=== PATIENT | male | born 1995 | race Caucasian/White ===

== ENCOUNTER 2017-02-10 14:20 | Inpatient (IN) | payer MEDICAID ==
[~2017-02-10] VITALS: Ht 172.7 cm; Wt 126.7 kg
[2017-02-10 14:32] VITALS: Ht 172.7 cm; Wt 126.7 kg
[2017-02-10 16:03] LABS: ADD UMIC YES; UR ASCORBIC ACID NEGATIVE (NEGATIVE); UR BILIRUBIN (Dip) NEGATIVE (NEGATIVE); UR BLOOD (Dip) 1+ mg/dL (NEGATIVE); UR CLARITY CLEAR (CLEAR); UR COLOR YELLOW (YELLOW); UR GLUCOSE (Dip) NEGATIVE (NEGATIVE); UR KETONES (Dip) NEGATIVE (NEGATIVE); UR LEUKOCYTE ESTERASE (Dip) NEGATIVE Leu/ul (NEGATIVE); UR MUCUS FEW /HPF (NONE SEEN); UR NITRITE (Dip) NEGATIVE (NEGATIVE); UR RBC 7 /HPF (0-5); UR SPECIFIC GRAVITY (Dip) 1.032 (1.003-1.030); UR TOTAL PROTEIN (Dip) NEGATIVE (NEGATIVE); UR UROBILINOGEN (Dip) 2+ mg/dL (NEGATIVE)
[2017-02-10 16:09] LABS: BASOPHIL # 0.1 10^3/ul (0.0-0.1); BASOPHILS % 0.5 % (0.0-2.0); EOSINOPHILS # 0.1 10^3/ul (0.0-0.5); EOSINOPHILS % 0.8 % (0.0-7.0); HEMATOCRIT 44.9 % (42.0-52.0); HEMOGLOBIN 15.4 g/dl (14.0-18.0); LYMPHOCYTES # 1.5 10^3/ul (0.8-2.9); LYMPHOCYTES % 14.7 % (15.0-51.0); MEAN CORPUSCULAR HEMOGLOBIN 29.1 pg (29.0-33.0); MEAN CORPUSCULAR HGB CONC 34.3 g/dl (32.0-37.0); MEAN CORPUSCULAR VOLUME 84.9 fl (82.0-101.0); MEAN PLATELET VOLUME 10.6 fl (7.4-10.4); MONOCYTE # 1.2 10^3/ul (0.3-0.9); MONOCYTES % 11.5 % (0.0-11.0); NEUTROPHIL # 7.5 10^3/ul (1.6-7.5); PLATELET COUNT 293 10^3/UL (140-415); RED BLOOD COUNT 5.29 10^6/ul (4.70-6.10); RED CELL DISTRIBUTION WIDTH 12.4 % (11.5-14.5); WHITE BLOOD COUNT 10.4 10^3/ul (4.8-10.8)
[2017-02-10 16:30] LABS: ALBUMIN 4.7 g/dl (3.3-4.9); ALBUMIN/GLOBULIN RATIO 1.27; BILIRUBIN,INDIRECT 0.4 mg/dl (0-1.1); BILIRUBIN,TOTAL 0.4 mg/dl (0.2-1.3); CALCIUM 9.2 mg/dl (8.4-10.2); CREATININE 0.79 mg/dl (0.61-1.24); POTASSIUM 4.2 mmol/L (3.5-5.1); TOTAL PROTEIN 8.4 g/dl (6.1-8.1)
--- NOTE | 2017-02-10 16:48 | RADRPT ---
PROCEDURE: CT abdomen and pelvis without contrast. Site of service: emergency room. CLINICAL INDICATION: Periumbilical abdominal pain TECHNIQUE: CT scan of the abdomen and pelvis without contrast was performed on the CT scanner. Th e patient was scanned without intravenous contrast. Oral contrast was not administered. 3-D post p rocessing coronal and sagittal re-formations were obtained from the axial source images. DICOM imag es are available. Exam D L P [address] D V O L 23 mgy. This exam is limited due to lack of intravenous contrast. One or more of the following dose reduction techniques were used: Automated exposure control Adjustment of the mA and/or kV according to patient size. Use of iterative reconstruction technique. COMPARISON: None FINDINGS: CT abdomen: The lung bases are clear. The heart size is normal, without pericardial thickening or effusion. The liver is normal in size and density without focal mass or intrahepatic biliary dilatation. The spleen is normal in size and homogeneous in density. The stomach is partially collapsed, but is ricardo ssly unremarkable. The pancreas as visualized is normal. The gallbladder and biliary tree are unre markable and there is no evidence for biliary dilatation. The adrenal glands are symmetric and normal. There is a nonobstructing, punctate, 3 mm right renal stone. No collecting system dilatation, obstructing stone, or solid mass. The kidneys are otherwise normal. The aorta is of normal caliber. There is no retroperitoneal lymphadenopathy. The sandro hepatis alisa on is clear. The bowel and mesentery, as visualized, are equally unremarkable. 3.7 cm superior to the umbilicus; there is a 5 cm AP x 4 x 4 cm ventral hernia with a neck measuring 10 x 10 mm containing fat and fluid only that shows hernia incarceration. This incarcerated hernia does not show evidence for bowel loops. There are no findings of bowel obstruction, perforation, dario e fluid or abscess. CT pelvis: The small bowel loops situated within the pelvis are unremarkable. The appendix is normal. The sig moid colon and rectum are all unremarkable. No mass, lymphadenopathy, or free fluid is seen. No ac akhiok inflammation is seen. Mild constipation is noted. The pelvic organs are normal. The pelvic sidewalls and inguinal regions are clear. The surrounding osseous structures are normal. No osteolytic or osteoblastic lesion is detected. IMPRESSION: 1. 5 x 4 x 4 cm ventral hernia with a neck measuring 10 mm, 3.7 cm superior to the mellitus; this ve ntral hernia contains fat and fluid only, and shows incarceration. There are no findings of bowel ob struction, bowel loops within the incarcerated hernia, bowel perforation, intra-abdominal abscess, o r acute inflammation of the bowel loops. Surgical follow-up is needed. 2. Nonobstructing, 3 mm, punctate renal stone. RPTAT: QQ .Buffy Reno MD, MD Date Time Electronically viewed and signed by .Buffy Reno MD, MD on 02/10/2017 16:48 .F/
[2017-02-10] MEDS ORDERED: HYDROmorphONE 1 MG/ML SYG IV STA ×2 (16:55→18:34)
[2017-02-10] MEDS ORDERED: SOD CHLORIDE 0.9% 1,000 ML IV STA (16:57)
[2017-02-10] MEDS ORDERED: ACETAMINOPHEN 325 MG TAB PO PRN (18:00)
[2017-02-10] MEDS ORDERED: ONDANSETRON 4 MG INJ IV PRN ×2 (18:00→19:00)
--- NOTE | 2017-02-10 18:03 | EN ---
Date/Time of Note Date/Time of Note DATE: 02/10/17 TIME: 18:01 ER Progress Note I have seen and evaluated the patient along with the PA and/or [employer] provider. I agree with the evaluation and plan of care. Please see their documentation for full ER course and evaluation. In short: This is a 21-year-old male who presents with epigastric mass that is consistent with ventral hernia On exam: Firm hernia on the ventral abdomen that is fixed without ability to reduce despite multiple attempts, some early skin changes are noted, no peritonitis Assessment and plan: the patient has evidence of incarcerated hernia, no signs clinically of strangulation. However, failed attempts at Reduction at the bedside. The patient will require surgical evaluation and possible surgical intervention. I spoke to Dr. Reeves who is on the case. The patient is n.p.o. His pain is well controlled. Accepting care team and consultations: I discussed the current laboratory data, diagnostic imaging and emergency care provided. Admitting team: Dr. Mclaughlin Admitting team indication: Insurance directed Consulting services: Dr. Adiel Reeves, general surgeon JANE CORNELIUS MD Feb 10, 2017 18:03
--- NOTE | 2017-02-10 18:13 | ERD ---
ER Documentation Chief Complaint Chief Complaint ABDOMINAL PAIN X 4 DAYS; DENIES N/V HPI 21-year-old male complaining of epigastric pain 4 days. Patient denies vomiting. Patient states the pain is worse with moving. Patient states he has not had a bowel movement for the last 4 days. Took a laxative earlier today and yesterday with no alleviation of constipation. Feels his abdomen is distended. Has never experienced this before. Denies taking any other medication. Has not been passing gas over the last few days. Denies medical problems. NKDA. Surgical history: Finger surgery. Social history: Denies ROS All systems reviewed and are negative except as per history of present illness. PMhx/Soc Medical and Surgical Hx: pt denies Medical Hx, pt denies Surgical Hx Hx Alcohol Use: Yes Hx Substance Use: No Hx Tobacco Use: No Smoking Status: Never smoker Physical Exam Vitals Vital Signs Date Time Temp Pulse Resp B/P Pulse Ox O2 Delivery O2 Flow Rate FiO2 02/10/17 14:32 99.7 110 16 140/86 97 Physical Exam GENERAL: The patient is well-appearing, well-nourished, in no acute distress HEENT: Atraumatic. Conjunctivae are pink. Pupils equal, round, and reactive to light. There is no scleral icterus. Tympanic membranes clear bilaterally. Oropharynx clear. No nystagmus or photophobia. NECK: C-spine is soft and supple. There is no meningismus. There is no cervical lymphadenopathy. No JVD. No bruits. No goiter. CHEST: Clear to auscultation bilaterally. There are no rales, wheezes or rhonchi. HEART: Regular rate and rhythm. No murmurs, clicks, rubs or gallops. No S3 or S4. ABDOMEN: Tennis ball size mass noted to mid abdomen. No distention. No organomegaly. Mild tenderness to palpation over the mid abdominal mass. Abdomen soft. SKIN: Erythema noted to the abdominal wall. No vesicles. No rash. BACK: No CVA tenderness Result Diagram: 02/10/17 1555 02/10/17 1555 Results 24 hrs Laboratory Tests Test 02/10/17 15:47 02/10/17 15:55 Urine Color YELLOW Urine Clarity CLEAR Urine pH 5.0 Urine Specific Olpe 1.032 Urine Ketones NEGATIVEmg/dL Urine Nitrite NEGATIVEmg/dL Urine Bilirubin NEGATIVEmg/dL Urine Urobilinogen 2+mg/dL Urine Leukocyte Esterase NEGATIVELeu/ul Urine Microscopic RBC 7/HPF Urine Microscopic WBC 1/HPF Urine Mucus FEW/HPF Urine Hemoglobin 1+mg/dL Urine Glucose NEGATIVEmg/dL Urine Total Protein NEGATIVEmg/dl White Blood Count 10.410^3/ul Red Blood Count 5.2910^6/ul Hemoglobin 15.4g/dl Hematocrit 44.9% Mean Corpuscular Volume 84.9fl Mean Corpuscular Hemoglobin 29.1pg Mean Corpuscular Hemoglobin Concent 34.3g/dl Red Cell Distribution Width 12.4% Platelet Count 29222^3/UL Mean Platelet Volume 10.6fl Neutrophils % 72.0% Lymphocytes % 14.7% Monocytes % 11.5% Eosinophils % 0.8% Basophils % 0.5% Nucleated Red Blood Cells % 0.0/100WBC Neutrophils # 7.510^3/ul Lymphocytes # 1.510^3/ul Monocytes # 1.210^3/ul Eosinophils # 0.110^3/ul Basophils # 0.110^3/ul Nucleated Red Blood Cells # 0.010^3/ul Sodium Level 142mmol/L Potassium Level 4.2mmol/L Chloride Level 101mmol/L Carbon Dioxide Level 26mmol/L Anion Gap 19 Blood Urea Nitrogen 16mg/dl Creatinine 0.79mg/dl Glucose Level 96mg/dl Calcium Level 9.2mg/dl Total Bilirubin 0.4mg/dl Direct Bilirubin 0.00mg/dl Indirect Bilirubin 0.4mg/dl Aspartate Amino Transf (AST/SGOT) 19IU/L Alanine Aminotransferase (ALT/SGPT) 47IU/L Alkaline Phosphatase 96IU/L Total Protein 8.4g/dl Albumin 4.7g/dl Globulin 3.70g/dl Albumin/Globulin Ratio 1.27 Lipase 42U/L Current Medications Medications (Trade) Dose Ordered Sig/Brielle Route PRN Reason Start Time Stop Time Status Last Admin Dose Admin Hydromorphone HCl 1 mg 1 mg ONCE STAT IV 02/10/17 16:55 02/10/17 16:56 DC 02/10/17 17:03 Sodium Chloride (NS) 1,000 ml @ 1,000 mls/hr Q1H STAT IV 02/10/17 16:57 02/10/17 17:56 DC 02/10/17 17:04 Ondansetron HCl (Zofran Inj) 4 mg BRIDGE ORDER PRN IV NAUSEA AND/OR VOMITING 02/10/17 18:00 02/11/17 17:59 Acetaminophen (Tylenol Tab) 650 mg ER BRIDGE PRN PO MILD PAIN/FEVER 02/10/17 18:00 02/11/17 17:59 Procedures/MDM DIAGNOSTIC IMAGING REPORT Patient: BRITTANY BEJARANO : 1995 Age: 21 Sex: M MR #: [id number] DOS: 02/10/17 1536 Ordering MD: OZ NEWBERRY PA-C Location: [facility] Room/Bed: PROCEDURE: CT abdomen and pelvis without contrast. Site of service: emergency room. CLINICAL INDICATION: Periumbilical abdominal pain TECHNIQUE: CT scan of the abdomen and pelvis without contrast was performed on the CT scanner. The patient was scanned without intravenous contrast. Oral contrast was not administered. 3-D post processing coronal and sagittal re- formations were obtained from the axial source images. DICOM images are available. Exam D L P [address] D V O L 23 mgy. This exam is limited due to lack of intravenous contrast. One or more of the following dose reduction techniques were used: Automated exposure control Adjustment of the mA and/or kV according to patient size. Use of iterative reconstruction technique. COMPARISON: None FINDINGS: CT abdomen: The lung bases are clear. The heart size is normal, without pericardial thickening or effusion. The liver is normal in size and density without focal mass or intrahepatic biliary dilatation. The spleen is normal in size and homogeneous in density. The stomach is partially collapsed, but is grossly unremarkable. The pancreas as visualized is normal. The gallbladder and biliary tree are unremarkable and there is no evidence for biliary dilatation. The adrenal glands are symmetric and normal. There is a nonobstructing, punctate, 3 mm right renal stone. No collecting system dilatation, obstructing stone, or solid mass. The kidneys are otherwise normal. The aorta is of normal caliber. There is no retroperitoneal lymphadenopathy. The sandro hepatis region is clear. The bowel and mesentery, as visualized, are equally unremarkable. 3.7 cm superior to the umbilicus; there is a 5 cm AP x 4 x 4 cm ventral hernia with a neck measuring 10 x 10 mm containing fat and fluid only that shows hernia incarceration. This incarcerated hernia does not show evidence for bowel loops. There are no findings of bowel obstruction, perforation, free fluid or abscess. CT pelvis: The small bowel loops situated within the pelvis are unremarkable. The appendix is normal. The sigmoid colon and rectum are all unremarkable. No mass , lymphadenopathy, or free fluid is seen. No acute inflammation is seen. Mild constipation is noted. The pelvic organs are normal. The pelvic sidewalls and inguinal regions are clear. The surrounding osseous structures are normal. No osteolytic or osteoblastic lesion is detected. IMPRESSION: 1. 5 x 4 x 4 cm ventral hernia with a neck measuring 10 mm, 3.7 cm superior to the mellitus; this ventral hernia contains fat and fluid only, and shows incarceration. There are no findings of bowel obstruction, bowel loops within the incarcerated hernia, bowel perforation, intra-abdominal abscess, or acute inflammation of the bowel loops. Surgical follow-up is needed. 2. Nonobstructing, 3 mm, punctate renal stone. ER Course: Patient placed in Trendelenburg and a liter of normal saline with 1 mg Dilaudid. Ice applied to abdominal mass. Firm pressure was applied to the abdominal mass to attempt reduction of incarcerated hernia. Reduction was unsuccessful. Dr. Novak attempted to reduce hernia as well and was unsuccessful. Case was taken over by Dr. Novak, he will contact surgeon for consultation and admission. MDM: 21-year-old male complaining of abdominal pain with no passing of stools or bowel movements. Patient has findings of incarcerated hernia on CT scan with unsuccessful reduction in the emergency room. Patient will be admitted to the hospital for higher level care and surgeon consultation. Patient was stable and aware of reason for admission. Patient's pain was well controlled at the time of admission. All questions answered at time of admission YOLANDA NEWBERRY PA-C Feb 10, 2017 18:13
[2017-02-10] MEDS ORDERED: NACL 0.9% 3 ML SYG IV SCH (19:00)
--- NOTE | 2017-02-10 19:02 | HP ---
Date/Time of Note Date/Time of Note DATE: 02/10/17 TIME: 18:58 Assessment/Plan VTE Prophylaxis VTE Prophylaxis Intervention: SCD's Assessment/Plan Chief Complaint/Hosp Course 1. Ventral hernia with evidence of incarceration. No evidence of any strangulation. The patient to be seen by general surgery. The patient will be kept n.p.o. The patient will be provided with adequate pain control. The patient will be provided with IV fluids. The patient has no evidence of any underlying peritonitis. The CT does not show any evidence of bowel perforation , intra-abdominal abscess or acute inflammation of the bowel loops. Will trend lactic acid levels. 2. Morbid obesity. BMI of 42.5 kg/m. A hemoglobin A1c and fasting lipid panel will be obtained. Plan: The patient will be admitted to inpatient medical surgical floor. The patient will be kept n.p.o. The patient will be started on DVT prophylaxis. The patient will remain a full code. Activities will be bedrest . The rest of the patient's management will be based on the clinical course, inputs from consultants, and the results of diagnostic studies. Based on the patient's clinical presentation, he most probably requires at least 2 midnights' stay for further management and evaluation of his clinical presentation. The case and management of this patient was fully discussed with Dr. Mclaughlin. Problems: HPI/ROS Admit Date/Time Admit Date/Time Hx of Present Illness Reason for admission: Abdominal pain. Constipation. Consultants 1. Jose Reeves MD, General Surgery. This is an obese 21-year-old male who denies any significant past medical history who came to the emergency room with chief complaint of constipation and abdominal pain that has been going on for the past 4 days. The patient verbalized that he had some food on 02/07/2017. Since then he was having abdominal pain. Later he was constipated. The patient took [id number] laxatives within no relief of constipation. The patient denied any nausea or vomiting. He has not been passing gas over the past few days. The patient verbalized that he has been noticing a bulge in his upper abdomen that was painful to touch. The patient denied any prior similar episodes. The patient denied any surgical history in the past. In the emergency room, the patient underwent a CT scan of the abdomen and pelvis that showed a 544 cm ventral hernia with a neck measuring 10 mm, 3.7 cm superior to the umbilicus with hernia containing fat and fluid only, and showing incarceration. The ER physician tried reduction of the hernia at the bedside with no success. ROS Constitutional: poor po Eyes: no complaints ENT: no complaints Respiratory: no complaints Cardiovascular: no complaints Gastrointestinal: constipation, pain Genitourinary: no complaints Musculoskeletal: no complaints Skin: no complaints Neurologic: no complaints Endocrine: no complaints Lymphatic: no complaints Psychological: no complaints Immunologic: no complaints PMH/Family/Social Past Medical History Medical History: no pertinent history Past Surgical History Past Surgical Hx: no surgical history Social History The patient works in a restaurant. Alcohol Use: occasionally Smoking Status: Never smoker Drug Use: none Exam/Review of Systems Vital Signs Vitals Vital Signs Date Time Temp Pulse Resp B/P Pulse Ox O2 Delivery O2 Flow Rate FiO2 02/10/17 18:35 98.1 89 20 124/92 97 Room Air Exam Exam General: Morbidly obese 21 year-old male lying in bed in no apparent distress. HEENT: Normocephalic, atraumatic. Eyes: Anicteric sclerae, conjunctivae clear. ENT: Nasal septum midline, oral mucosa moist. Neck supple, no JVD noticed. Respiratory: Bilaterally clear breath sounds. No use of accessory muscles of respiration. No adventitious breath sounds. Cardiovascular: S1, S2 heard. No murmurs or gallops. Abdomen: Soft. Epigastric hernia that is irreducible with tenderness in the area. Genitourinary: Deferred. Extremities: No cyanosis, no clubbing, no edema. Peripheral pulses palpable. Neurologic: Cranial nerves II through XII grossly intact. The patient is awake, alert, and oriented. Skin: Normal skin turgor. No skin rashes. Labs Result Diagram: 02/10/17 1555 02/10/[address] Abdomen and Pelvis IMPRESSION: 1. 5 x 4 x 4 cm ventral hernia with a neck measuring 10 mm, 3.7 cm superior to the mellitus; this ventral hernia contains fat and fluid only, and shows incarceration. There are no findings of bowel obstruction, bowel loops within the incarcerated hernia, bowel perforation, intra-abdominal abscess, or acute inflammation of the bowel loops. Surgical follow-up is needed. 2. Nonobstructing, 3 mm, punctate renal stone. GRAY MARTINEZ NP Feb 10, 2017 19:02
--- NOTE | 2017-02-10 19:03 | CONS ---
Date/Time of Note Date/Time of Note DATE: 02/10/17 TIME: 19:03 Assessment/Plan Assessment/Plan Chief Complaint/Hosp Course 1. Incarcerated ventral hernia with omentum -OR for repair 2. Abdominal pain secondary to above -Pain control -Surgical repair 3. BMI 42 -Diet optimization and exercise encouraged 4. Constipation -Bowel regimen -Increase fluid intake Thank you very much for consulting me in this patient's care, Problems: Consultation Date/Type/Reason Admit Date/Time Date of Consultation: Feb 10, 2017 Type of Consultation: G. Surgical Reason for Consultation Abdominal pain Ventral incarcerated hernia with omentum BMI 42 Referring Provider: JANE CORNELIUS MD Hx of Present Illness Roel Barron is an obese 21yo male who came to the emergency room with chief complaint of constipation and abdominal pain that has been going on for the past 4 days. He also reports abdominal pain in mid abdomen at site of swelling and color change. The patient denied any nausea or vomiting. He has not been passing gas over the past few days. The patient denied any prior similar episodes in past. Denies any f/c/cough/sz/visual or neuro changes. No dysuria. In the emergency room, the patient underwent a CT scan of the abdomen and pelvis that showed a 544 cm ventral hernia with a neck measuring 10 mm, 3.7 cm superior to the umbilicus with hernia containing fat and fluid only, and showing incarceration. Surgical consult is obtained for further evaluation and treatment. Eyes: no complaints ENT: no complaints Respiratory: no complaints Cardiovascular: no complaints Gastrointestinal: constipation, pain Genitourinary: no complaints Musculoskeletal: no complaints Skin: no complaints Neurologic: no complaints Lymphatic: no complaints Psychological: no complaints Immunologic: no complaints Past Medical History BMI 42 Ventral incarcerated hernia Constipation Past Surgical History Past Surgical Hx: no surgical history Family History Significant Family History: no pertinent family hx Social History The patient works in a restaurant. Alcohol Use: occasionally Smoking Status: Never smoker Drug Use: none Smoking Status: Never smoker Exam/Review of Systems Vital Signs Vitals Vital Signs Date Time Temp Pulse Resp B/P Pulse Ox O2 Delivery O2 Flow Rate FiO2 02/10/17 18:35 98.1 89 20 124/92 97 Room Air Exam Constitutional: alert, obese, oriented, No distress Psych: nl mood/affect, No anxiety Head: atraumatic, normocephalic Eyes: EOMI, PERRL, nl conjunctiva, No icteric ENMT: mucosa pink and moist, nl external ears & nose, nl lips & teeth Neck: non-tender, supple, No jvd Respiratory: normal air movement, No congested cough, No labored breathing Cardiovascular: regular rate and rhythm, No edema Gastrointestinal: other (ertythema at site of hernia), soft, tender, No rebound or guarding Musculoskeletal: nl extremities to inspection, nl gait and stance, No joint tenderness Extremities: normal pulses, No calf tenderness, No cyanosis Neurological: nl mental status, nl speech, nl strength Skin: nl turgor, rash or lesions, No diaphoresis Lymph: nl lymph nodes Results Result Diagram: 02/10/17 1555 02/10/17 1555 Results 24 hrs Laboratory Tests Test 02/10/17 15:47 02/10/17 15:55 Urine Color YELLOW Urine Clarity CLEAR Urine pH 5.0 Urine Specific Plessis 1.032 H Urine Ketones NEGATIVE Urine Nitrite NEGATIVE Urine Bilirubin NEGATIVE Urine Urobilinogen 2+ H Urine Leukocyte Esterase NEGATIVE Urine Microscopic RBC 7 H Urine Microscopic WBC 1 Urine Mucus FEW A Urine Hemoglobin 1+ H Urine Glucose NEGATIVE Urine Total Protein NEGATIVE White Blood Count 10.4 Red Blood Count 5.29 Hemoglobin 15.4 Hematocrit 44.9 Mean Corpuscular Volume 84.9 Mean Corpuscular Hemoglobin 29.1 Mean Corpuscular Hemoglobin Concent 34.3 Red Cell Distribution Width 12.4 Platelet Count 293 Mean Platelet Volume 10.6 H Neutrophils % 72.0 Lymphocytes % 14.7 L Monocytes % 11.5 H Eosinophils % 0.8 Basophils % 0.5 Nucleated Red Blood Cells % 0.0 Neutrophils # 7.5 Lymphocytes # 1.5 Monocytes # 1.2 H Eosinophils # 0.1 Basophils # 0.1 Nucleated Red Blood Cells # 0.0 Sodium Level 142 Potassium Level 4.2 Chloride Level 101 Carbon Dioxide Level 26 Anion Gap 19 H Blood Urea Nitrogen 16 Creatinine 0.79 Glucose Level 96 Calcium Level 9.2 Total Bilirubin 0.4 Direct Bilirubin 0.00 Indirect Bilirubin 0.4 Aspartate Amino Transf (AST/SGOT) 19 Alanine Aminotransferase (ALT/SGPT) 47 Alkaline Phosphatase 96 Total Protein 8.4 H Albumin 4.7 Globulin 3.70 H Albumin/Globulin Ratio 1.27 Lipase 42 Medications Medications Current Medications Sodium Chloride (NS) 1,000 ml @ 125 mls/hr Q8H IV ; Start 02/10/17 at 18:46; Status UNV Ondansetron HCl (Zofran Inj) 4 mg Q6H PRN IV NAUSEA AND/OR VOMITING; Start at 19:00; Status UNV Morphine Sulfate (morphine) 4 mg Q4H PRN IV SEVERE PAIN LEVEL 7-10; Start at 19:00; Status UNV SKYLAR ARIAS MD Feb 10, 2017 19:03
[2017-02-10] MEDS: SOD CHLORIDE 0.9% 1,000 ML IV SCH (19:25)
[2017-02-10] MEDS: HYDROmorphONE 1 MG/ML SYG IV PRN (21:18)
[2017-02-10] MEDS: morphine 2 MG INJ IV PRN (23:46)
[2017-02-11] VITALS (23 sets, daily range): BP systolic 119–160; BP diastolic 61–84; PULSE 98–112; RESP 12–20; TEMP 98.6
[2017-02-11] MEDS: HYDROmorphONE 1 MG/ML SYG IV PRN ×2 (01:08→20:07)
[2017-02-11] MEDS: SOD CHLORIDE 0.9% 1,000 ML IV SCH ×3 (02:18→18:51)
[2017-02-11 05:53] LABS: BASOPHILS % 0.3 % (0.0-2.0); EOSINOPHILS # 0.2 10^3/ul (0.0-0.5); EOSINOPHILS % 1.9 % (0.0-7.0); HEMATOCRIT 39.4 % (42.0-52.0); HEMOGLOBIN 13.2 g/dl (14.0-18.0); LYMPHOCYTES # 1.7 10^3/ul (0.8-2.9); LYMPHOCYTES % 19.2 % (15.0-51.0); MEAN CORPUSCULAR HEMOGLOBIN 28.9 pg (29.0-33.0); MEAN CORPUSCULAR HGB CONC 33.5 g/dl (32.0-37.0); MEAN CORPUSCULAR VOLUME 86.2 fl (82.0-101.0); MEAN PLATELET VOLUME 10.8 fl (7.4-10.4); MONOCYTE # 0.9 10^3/ul (0.3-0.9); MONOCYTES % 10.5 % (0.0-11.0); NEUTROPHIL # 5.9 10^3/ul (1.6-7.5); NEUTROPHILS % 67.5 % (39.0-77.0); PLATELET COUNT 241 10^3/UL (140-415); RED BLOOD COUNT 4.57 10^6/ul (4.70-6.10); RED CELL DISTRIBUTION WIDTH 12.5 % (11.5-14.5); WHITE BLOOD COUNT 8.7 10^3/ul (4.8-10.8)
[2017-02-11 06:14] LABS: INR 1.06; PROTIME 13.8 Sec (12.2-14.2); PT RATIO 1.1
[2017-02-11 06:15] LABS: PARTIAL THROMBOPLASTIN TIME 34.9 Sec (25.0-35.0)
[2017-02-11 06:49] LABS: CHOL/HDL RATIO 3.1 RATIO; MAGNESIUM 1.9 mg/dl (1.7-2.5); PHOSPHORUS 3.4 mg/dl (2.5-4.9)
[2017-02-11 07:13] LABS: ALBUMIN 3.5 g/dl (3.3-4.9); ALBUMIN/GLOBULIN RATIO 0.97; BILIRUBIN,INDIRECT 0.7 mg/dl (0-1.1); BILIRUBIN,TOTAL 0.7 mg/dl (0.2-1.3); CALCIUM 8.9 mg/dl (8.4-10.2); CREATININE 0.72 mg/dl (0.61-1.24); POTASSIUM 4.1 mmol/L (3.5-5.1); TOTAL PROTEIN 7.1 g/dl (6.1-8.1)
[2017-02-11 07:14] LABS: THYROID STIMULATING HORMONE 1.42 MIU/L (0.465-4.680)
[2017-02-11] MEDS ORDERED: PROPOFOL 40 ML ONE (13:08)
[2017-02-11] MEDS ORDERED: MIDAZOLAM 1 MG/ML 2 ML INJ ONE (13:08)
[2017-02-11] MEDS ORDERED: ROCURONIUM 50 MG INJ ONE ×3 (13:08→14:54)
[2017-02-11] MEDS ORDERED: ROPIVACAINE 0.5 % 30 ML VIAL ONE (13:09)
[2017-02-11] MEDS ORDERED: LIDOCAINE 1% (MPF) 30 ML INJ ONE (13:47)
[2017-02-11] MEDS ORDERED: BUPIVACAINE 0.5%/EPI (SDV) 30 ML INJ ONE (13:47)
[2017-02-11] MEDS ORDERED: POLYMYXIN/BACITRACIN 1L IRRIG ONE (13:47)
--- NOTE | 2017-02-11 13:57 | PN ---
Date/Time of Note Date/Time of Note DATE: 02/11/17 TIME: 13:56 Assessment/Plan Lines/Catheters IV Catheter Type (from Nrsg): Peripheral IV Assessment/Plan Chief Complaint/Hosp Course 1. Incarcerated ventral hernia with omentum -OR for repair today 2. Abdominal pain secondary to above -Pain control -Surgical repair 3. BMI 42 -Diet optimization and exercise encouraged 4. Constipation -Bowel regimen -Increase fluid intake Thank you, Problems: Subjective 24 Hr Interval Summary Pain persists. No nausea vomiting. No fevers or chills. No chest pain or shortness of breath. No cough. No seizure. No blood per mouth or rectum. Passing gas. Constipated. No visual or neurologic changes. Ready for surgery. Exam/Review of Systems Vital Signs Vitals Vital Signs Date Time Temp Pulse Resp B/P Pulse Ox O2 Delivery O2 Flow Rate FiO2 02/11/17 07:59 98.0 95 18 131/71 96 02/11/17 01:03 Room Air Intake and Output 02/10/17 02/10/17 02/11/17 15:00 23:00 07:00 Intake Total 375 ml Balance 375 ml Exam Free Text/Dictation Constitutional: alert, obese, oriented, No distress Psych: nl mood/affect, No anxiety Head: atraumatic, normocephalic Eyes: EOMI, PERRL, nl conjunctiva, No icteric ENMT: mucosa pink and moist, nl external ears & nose, nl lips & teeth Neck: non-tender, supple, No jvd Respiratory: normal air movement, No congested cough, No labored breathing Cardiovascular: regular rate and rhythm, No edema Gastrointestinal: other (ertythema at site of hernia), soft, tender, No rebound or guarding Musculoskeletal: nl extremities to inspection, nl gait and stance, No joint tenderness Extremities: normal pulses, No calf tenderness, No cyanosis Neurological: nl mental status, nl speech, nl strength Skin: nl turgor, rash or lesions, No diaphoresis Lymph: nl lymph nodes Results Result Diagram: 02/11/17 0445 02/11/17 0445 SKYLAR ARIAS MD Feb 11, 2017 13:57
--- NOTE | 2017-02-11 14:42 | PN ---
Date/Time of Note Date/Time of Note DATE: 02/11/17 TIME: 14:39 Assessment/Plan Lines/Catheters IV Catheter Type (from [facility]): Peripheral IV Assessment/Plan Chief Complaint/Hosp Course Assessment and plan . 1. Ventral hernia with evidence of incarceration. Patient for ventral hernia repair. Will follow postop. Analgesics as needed. Diet to be advanced per surgeon. 2. Morbid obesity. EOMI was noted at 42.5 kg/m. Weight reduction to be advised. 3. Anemia. Follow-up on iron panel. Disposition plan: Patient for ventral hernia repair today. Follow Postop. Analgesics as needed. Continue with surgical recs. Discussed plan of care with Dr. Torres Problems: Subjective 24 Hr Interval Summary Free Text/Dictation patient for ventral hernia repair Exam/Review of Systems Vital Signs Vitals Vital Signs Date Time Temp Pulse Resp B/P Pulse Ox O2 Delivery O2 Flow Rate FiO2 02/11/17 07:59 98.0 95 18 131/71 96 02/11/17 01:03 Room Air Intake and Output 02/10/17 02/10/17 02/11/17 14:59 22:59 06:59 Intake Total 375 ml Balance 375 ml Exam patient for ventral hernia repair Results Result Diagram: 02/11/17 0445 02/11/17 0445 Results 24 hrs Laboratory Tests Test 02/10/17 15:47 02/10/17 15:55 02/10/17 20:40 02/11/17 04:45 Urine Color YELLOW Urine Clarity CLEAR Urine pH 5.0 Urine Specific [place] 1.032 H Urine Ketones NEGATIVE Urine Nitrite NEGATIVE Urine Bilirubin NEGATIVE Urine Urobilinogen 2+ H Urine Leukocyte Esterase NEGATIVE Urine Microscopic RBC 7 H Urine Microscopic WBC 1 Urine Mucus FEW A Urine Hemoglobin 1+ H Urine Glucose NEGATIVE Urine Total Protein NEGATIVE White Blood Count 10.4 8.7 Red Blood Count 5.29 4.57 L Hemoglobin 15.4 13.2 L Hematocrit 44.9 39.4 L Mean Corpuscular Volume 84.9 86.2 Mean Corpuscular Hemoglobin 29.1 28.9 L Mean Corpuscular Hemoglobin Concent 34.3 33.5 Red Cell Distribution Width 12.4 12.5 Platelet Count 293 241 Mean Platelet Volume 10.6 H 10.8 H Neutrophils % 72.0 67.5 Lymphocytes % 14.7 L 19.2 Monocytes % 11.5 H 10.5 Eosinophils % 0.8 1.9 Basophils % 0.5 0.3 Nucleated Red Blood Cells % 0.0 0.0 Neutrophils # 7.5 5.9 Lymphocytes # 1.5 1.7 Monocytes # 1.2 H 0.9 Eosinophils # 0.1 0.2 Basophils # 0.1 0.0 Nucleated Red Blood Cells # 0.0 0.0 Sodium Level 142 141 Potassium Level 4.2 4.1 Chloride Level 101 105 Carbon Dioxide Level 26 28 Anion Gap 19 H 12 # Blood Urea Nitrogen 16 11 Creatinine 0.79 0.72 Glucose Level 96 76 Calcium Level 9.2 8.9 Total Bilirubin 0.4 0.7 Direct Bilirubin 0.00 0.00 Indirect Bilirubin 0.4 0.7 Aspartate Amino Transf (AST/SGOT) 19 16 Alanine Aminotransferase (ALT/SGPT) 47 31 Alkaline Phosphatase 96 76 Total Protein 8.4 H 7.1 # Albumin 4.7 3.5 # Globulin 3.70 H 3.60 H Albumin/Globulin Ratio 1.27 0.97 Lipase 42 Free Thyroxine 1.31 Lactic Acid Level 0.8 0.8 Prothrombin Time 13.8 Prothrombin Time Ratio 1.1 INR International Normalized Ratio 1.06 Activated Partial Thromboplast Time 34.9 Hemoglobin A1c 5.2 Phosphorus Level 3.4 Magnesium Level 1.9 Triglycerides Level 72 Cholesterol Level 116 LDL Cholesterol, Calculated 65 HDL Cholesterol 37 Cholesterol/HDL Ratio 3.1 Thyroid Stimulating Hormone (TSH) 1.420 Test 02/11/17 10:22 Lab Scanned Report LAB Medications Medications Current Medications Sodium Chloride (NS) 1,000 ml @ 125 mls/hr Q8H IV Last administered on 02:18; Admin Dose 125 MLS/HR; Start 02/10/17 at 18:46 Ondansetron HCl (Zofran Inj) 4 mg Q6H PRN IV NAUSEA AND/OR VOMITING; Start at 19:00 Morphine Sulfate (morphine) 4 mg Q4H PRN IV SEVERE PAIN LEVEL 7-10 Last administered on 02/10/17 23:46; Admin Dose 4 MG; Start 02/10/17 at 19:00 Hydromorphone HCl (Dilaudid) 1 mg Q4 PRN IV pain Last administered on 01:08; Admin Dose 1 MG; Start 02/10/17 at 21:30 REGIDOR,RUBEN Feb 11, 2017 14:42
[2017-02-11] MEDS ORDERED: ONDANSETRON 4 MG INJ ONE (14:52)
[2017-02-11] MEDS ORDERED: METOCLOPRAMIDE 10 MG INJ ONE (14:52)
[2017-02-11] MEDS ORDERED: KETOROLAC 30 MG INJ ONE (14:52)
[2017-02-11] MEDS ORDERED: DEXAMETHASONE 4 MG/ML 1 ML INJ ONE (14:52)
[2017-02-11] MEDS ORDERED: LABETALOL HCL 20MG INJ IV PRN (15:00)
[2017-02-11] MEDS ORDERED: METOCLOPRAMIDE 10 MG INJ IV PRN (15:00)
[2017-02-11] MEDS ORDERED: ONDANSETRON 4 MG INJ IV PRN (15:00)
[2017-02-11] MEDS ORDERED: OXYCODONE/ACETAMINOPHEN (5/325) TAB PO PRN ×2 (15:00)
[2017-02-11] MEDS ORDERED: EPHEDrine SULFATE 50 MG/5 ML SYG IV PRN (15:00)
[2017-02-11] MEDS ORDERED: hydrALAzine 20 MG INJ IV PRN (15:00)
[2017-02-11] MEDS ORDERED: morphine (1 MG/ML) 10ML SYRINGE IV PRN ×3 (15:00)
[2017-02-11] MEDS ORDERED: HYDROmorphONE (0.2 MG/ML) 10ML SYG IV PRN ×3 (15:00)
[2017-02-11] MEDS ORDERED: DIPHENHYDRAMINE 50 MG INJ IV PRN (15:00)
[2017-02-11] MEDS ORDERED: MEPERIDINE 25 MG INJ IV PRN (15:00)
[2017-02-11] MEDS ORDERED: FENTAnyl 50 MCG/ML VIAL IV PRN ×3 (15:00)
[2017-02-11] MEDS ORDERED: SUGAMMADEX SODIUM 200 MG/2 ML VIAL IV ONE (15:02)
--- NOTE | 2017-02-11 16:11 | OPR ---
Date/Time of Note Date/Time of Note DATE: 02/11/17 TIME: 16:05 Operative Report Free Text/Dictation Preoperative Diagnosis: 1. Ventral hernia with incarcerated omentum 2. BMI 42 Postoperative Diagnosis: 1. Ventral hernia 2 with incarcerated omentum 2. BMI 42 Operation Performed: 1. Laparoscopic ventral herniorrhaphy 2 2. Excision of abdominal wall lesion/incarcerated omentum 3. Local anesthetic injection, [address] Surgeon: SKYLAR ARIAS MD Loan Auditor: None Anesthesia: general plus local plus regional Anesthesiologist: MD Roxann Estimated Blood Loss: 20 ml's Specimens: Hernia contents Tubes/Drains/implants: 15 x [address] Secure strap tacker Complications: None Pt Condition Post Procedure: stable Disposition: PACU Indications 21-year-old female female here for incarcerated omentum ventral herniorrhaphy. Risks include but are not limited to bleeding, infection, abscess, seroma, leak , damage to intestines or any intra-abdominal/intrapelvic structures, hernia formation or recurrent, chronic pain, need for re-operations or further surgeries, PA, stroke, PE, DVT, pneumonia, organ failures, or even . Procedure Description: Patient was brought and placed supine on the operating table SCDs were placed, preoperative antibiotics were administered, all pressure points were well-padded , left right arm was tucked, and after induction of anesthesia patient was prepped and draped in usual sterile fashion and timeout was performed. Incision was made in the left right upper quadrant, and using Optiview port and a 5 mm 0 scope abdomen was entered and insufflated to 15mmHg. Laparoscopy was performed with a 5 mm 30 scope. No injuries were identified. Another 5 mm port and a 12 mm port were placed in the left right lower quadrant. 2x 2cm ventral hernias was identified with incarcerated omentum. 2 of the ports were moved laterally to allow better visualization and surgery. All port sites were injected with half percent Marcaine with epi and 1% lidocaine prior to any incisions. Bilateral transversus abdominis plane block was performed by anesthesia preoperatively to aid with pain control intra-and postoperatively. The umbilical hernia was reduced with gentle dissection however the supraumbilical midline ventral hernia was very stuck and a large amount of omentum was still above the fascia. At this point this was transected with LigaSure. Incision was made just over the hernia and incarcerated fat was excised from circumferential fascia and sent to pathology. Wound was thoroughly irrigated. Using Endo Close, #1 Vicryl sutures were placed across the defects to approximated in a [id number] manner. Mesh was placed through the 12 mm port intra-abdominally with 4 tacking sutures of #1 Vicryl. After the mesh was positioned covering all hernia sites with at least 5 cm coverage on either side , transfacial sutures were exteriorized with an Endo Close. Then the secure strap tacker was used to tack the mesh circumferentially after the abdominal pressure was decreased to 10. There was complete hemostasis. 12 mm made port site fascia was closed with Endo Close and 0 Vicryl in a figure- of-eight manner. Ports and CO2 were removed under direct visualization. There was complete hemostasis. Wounds were thoroughly irrigated skin was closed with 4 -0 Monocryl in subcuticular fashion. Dermabond was applied. Patient was extubated and transferred to recovery room in stable condition and all counts were correct and the end of the operation 2. Abdominal binder was applied. SKYLAR ARIAS MD Feb 11, 2017 16:11
[2017-02-12 02:18] VITALS: BP 147/70; RESP 19
[2017-02-12] MEDS: HYDROmorphONE 1 MG/ML SYG IV PRN ×3 (03:02→21:21)
[2017-02-12] MEDS: SOD CHLORIDE 0.9% 1,000 ML IV SCH ×3 (03:02→18:46)
[2017-02-12 05:22] LABS: BASOPHILS % 0.2 % (0.0-2.0); HEMATOCRIT 37.5 % (42.0-52.0); HEMOGLOBIN 12.8 g/dl (14.0-18.0); LYMPHOCYTES # 1.4 10^3/ul (0.8-2.9); LYMPHOCYTES % 10.4 % (15.0-51.0); MEAN CORPUSCULAR HEMOGLOBIN 29.1 pg (29.0-33.0); MEAN CORPUSCULAR HGB CONC 34.1 g/dl (32.0-37.0); MEAN CORPUSCULAR VOLUME 85.2 fl (82.0-101.0); MEAN PLATELET VOLUME 10.8 fl (7.4-10.4); MONOCYTE # 1.3 10^3/ul (0.3-0.9); MONOCYTES % 9.7 % (0.0-11.0); NEUTROPHIL # 10.4 10^3/ul (1.6-7.5); NEUTROPHILS % 79.3 % (39.0-77.0); PLATELET COUNT 262 10^3/UL (140-415); RED CELL DISTRIBUTION WIDTH 12.5 % (11.5-14.5); WHITE BLOOD COUNT 13.1 10^3/ul (4.8-10.8)
[2017-02-12 06:04] LABS: ALBUMIN 3.7 g/dl (3.3-4.9); ALBUMIN/GLOBULIN RATIO 1.12; BILIRUBIN,INDIRECT 0.4 mg/dl (0-1.1); BILIRUBIN,TOTAL 0.4 mg/dl (0.2-1.3); CALCIUM 8.8 mg/dl (8.4-10.2); CREATININE 0.7 mg/dl (0.61-1.24)
[2017-02-12] MEDS: morphine 2 MG INJ IV PRN ×2 (06:27→12:03)
[2017-02-12 08:25] VITALS: BP 125/75; RESP 18
[2017-02-12] MEDS ORDERED: HYDROCODONE/APAP (5/325) TAB PO PRN (12:00)
--- NOTE | 2017-02-12 12:31 | PN ---
Date/Time of Note Date/Time of Note DATE: 02/12/17 TIME: 12:25 Assessment/Plan Lines/Catheters IV C[facility]ter Type (from [facility]): Peripheral IV Assessment/Plan Chief Complaint/Hosp Course Assessment and plan . 1. Ventral hernia with evidence of incarceration. s/p ventral hernia repair. . Analgesics as needed. continue on diet. encourage IS 2. Morbid obesity. bmi was noted at 42.5 kg/m. Weight reduction was be advised. 3. Anemia. iron panel pending. Disposition plan: Tolerating diet well continue with analgesics. Encourage ambulation. discharge when cleared by consultants. Discussed plan of care with Dr. Torres Problems: Subjective 24 Hr Interval Summary Free Text/Dictation still reports some abdominal discomfort Exam/Review of Systems Vital Signs Vitals Vital Signs Date Time Temp Pulse Resp B/P Pulse Ox O2 Delivery O2 Flow Rate FiO2 02/12/17 08:25 98.2 104 18 125/75 97 02/11/17 18:40 Room Air 2.0 Intake and Output 02/11/17 02/11/17 02/12/17 14:59 22:59 06:59 Intake Total 1200 ml 1125 ml 1800 ml Output Total 440 ml 1100 ml Balance 1200 ml 685 ml 700 ml Exam Constitutional: alert, obese, oriented Head: normocephalic Eyes: nl conjunctiva Neck: non-tender, supple Respiratory: clear to auscultation, normal air movement Cardiovascular: regular rate and rhythm Gastrointestinal: soft, tender Musculoskeletal: nl extremities to inspection Neurological: MILK HAULER II-XII intact, nl mental status, nl speech Skin: other (surgical site cdi ) Results Result Diagram: 02/12/1744202/12/17442 Results 24 hrs Laboratory Tests Test 02/12/17 04:43 White Blood Count 13.1 #H Red Blood Count 4.40 L Hemoglobin 12.8 L Hematocrit 37.5 L Mean Corpuscular Volume 85.2 Mean Corpuscular Hemoglobin 29.1 Mean Corpuscular Hemoglobin Concent 34.1 Red Cell Distribution Width 12.5 Platelet Count 262 Mean Platelet Volume 10.8 H Neutrophils % 79.3 H Lymphocytes % 10.4 L Monocytes % 9.7 Eosinophils % 0.0 Basophils % 0.2 Nucleated Red Blood Cells % 0.0 Neutrophils # 10.4 H Lymphocytes # 1.4 Monocytes # 1.3 H Eosinophils # 0.0 Basophils # 0.0 Nucleated Red Blood Cells # 0.0 Sodium Level 138 Potassium Level 4.0 Chloride Level 105 Carbon Dioxide Level 23 Anion Gap 14 Blood Urea Nitrogen 9 Creatinine 0.70 Glucose Level 85 Calcium Level 8.8 Total Bilirubin 0.4 Direct Bilirubin 0.00 Indirect Bilirubin 0.4 Aspartate Amino Transf (AST/SGOT) 15 Alanine Aminotransferase (ALT/SGPT) 31 Alkaline Phosphatase 73 Total Protein 7.0 Albumin 3.7 Globulin 3.30 H Albumin/Globulin Ratio 1.12 Medications Medications Current Medications Sodium Chloride (NS) 1,000 ml @ 125 mls/hr Q8H IV Last administered on 03:02; Admin Dose 125 MLS/HR; Start 02/10/17 at 18:46 Ondansetron HCl (Zofran Inj) 4 mg Q6H PRN IV NAUSEA AND/OR VOMITING; Start at 19:00 Morphine Sulfate (morphine) 4 mg Q4H PRN IV SEVERE PAIN LEVEL 7-10 Last administered on 02/12/17 12:03; Admin Dose 4 MG; Start 02/10/17 at 19:00 Hydromorphone HCl (Dilaudid) 1 mg Q4 PRN IV pain Last administered on 09:37; Admin Dose 1 MG; Start 02/10/17 at 21:30 Acetaminophen/ Hydrocodone Bitart ([place] (5/325)) 2 tab Q4H PRN PO PAIN 6-10/10 ; Start 02/12/17 at 12:00 Acetaminophen/ Hydrocodone Bitart ([place] (5/325)) 1 tab Q4H PRN PO PAIN 1-5/10 ; Start 02/12/17 at 12:00 Senna (Senokot) 2 tab DAILY PO ; Start 02/12/17 at 12:00 RUBEN WINKLER Feb 12, 2017 12:31
[2017-02-12] MEDS: HYDROCODONE/APAP (5/325) TAB PO PRN ×2 (12:37→16:37)
--- NOTE | 2017-02-12 14:02 | PN ---
Date/Time of Note Date/Time of Note DATE: 02/12/17 TIME: 13:55 Assessment/Plan Lines/Catheters IV Catheter Type (from Nrs[facility]): Peripheral IV Assessment/Plan Chief Complaint/Hosp Course 1. Ventral hernia with incarcerated omentum: s/p Laparoscopic ventral herniorrhaphy x2 -IS -ambulate -ice pack to abdominal wall -advance diet as tolerated -abd binder for suppport 2. Abdominal pain secondary to above -Pain control -as above 3. BMI 42 -Diet optimization and exercise encouraged 4. Constipation -Bowel regimen -Increase fluid intake 5. Leukocytosis: ?reactive, no fevers, tachycardic -as above -[place] culture if persistent 6. Normocytic normochromic anemia: -monitor -transfuse as needed Thank you. Patient seen and examined in collaboration with Dr. Jose Reeves. Problems: Subjective 24 Hr Interval Summary Feels well. Tolerating diet. +flatus. Abdominal pain continues. Leukocytosis. No fevers, chills, sob, congested cough, cp, palpitations, fortune, dizziness, n/v/d/ dysuria. Exam/Review of Systems Vital Signs Vitals Vital Signs Date Time Temp Pulse Resp B/P Pulse Ox O2 Delivery O2 Flow Rate FiO2 02/12/17 08:25 98.2 104 18 125/75 97 02/11/17 18:40 Room Air 2.0 Intake and Output 02/11/17 02/11/17 02/12/17 15:00 23:00 07:00 Intake Total 1200 ml 1125 ml 1800 ml Output Total 440 ml 1100 ml Balance 1200 ml 685 ml 700 ml Exam Free Text/Dictation Constitutional: alert, obese, oriented, No distress Psych: nl mood/affect, No anxiety Head: atraumatic, normocephalic Eyes: EOMI, PERRL, nl conjunctiva, No icteric ENMT: mucosa pink and moist, nl external ears & nose, nl lips & teeth Neck: non-tender, supple, No jvd Respiratory: normal air movement, No congested cough, No labored breathing Cardiovascular: regular rate and rhythm, No edema Gastrointestinal: soft, tender, No rebound or guarding, incision sites with rika, dry Musculoskeletal: nl extremities to inspection, nl gait and stance, No joint tenderness Extremities: normal pulses, No calf tenderness, No cyanosis Neurological: nl mental status, nl speech, nl strength Skin: nl turgor, rash or lesions, No diaphoresis Lymph: nl lymph nodes Results Result Diagram: 02/12/17 0443 02/12/17 0443 JOSE ROLLINS NP Feb 12, 2017 14:02
[2017-02-12 15:27] LABS: TOTAL IRON BINDING CAPACITY 245 ug/dl (241-421)
[2017-02-12 15:31] VITALS: BP 121/61; RESP 19
[2017-02-12 16:06] LABS: IRON < 10 ug/dl (35-150)
[2017-02-12] MEDS: SENNA TAB PO SCH (16:37)
[2017-02-12 19:45] VITALS: BP 140/80; PULSE 100; RESP 18
[2017-02-12 20:00] VITALS: BP 120/71; RESP 20
[2017-02-13] MEDS: HYDROCODONE/APAP (5/325) TAB PO PRN (01:11)
[2017-02-13] MEDS: SOD CHLORIDE 0.9% 1,000 ML IV SCH ×2 (01:52→10:46)
[2017-02-13 02:15] VITALS: BP 135/76; RESP 19
[2017-02-13 06:16] LABS: BASOPHIL # 0.1 10^3/ul (0.0-0.1); BASOPHILS % 0.4 % (0.0-2.0); EOSINOPHILS # 0.1 10^3/ul (0.0-0.5); EOSINOPHILS % 0.7 % (0.0-7.0); HEMATOCRIT 36.9 % (42.0-52.0); HEMOGLOBIN 12.7 g/dl (14.0-18.0); LYMPHOCYTES # 1.7 10^3/ul (0.8-2.9); LYMPHOCYTES % 13.1 % (15.0-51.0); MEAN CORPUSCULAR HEMOGLOBIN 29.5 pg (29.0-33.0); MEAN CORPUSCULAR HGB CONC 34.4 g/dl (32.0-37.0); MEAN CORPUSCULAR VOLUME 85.6 fl (82.0-101.0); MEAN PLATELET VOLUME 10.9 fl (7.4-10.4); MONOCYTE # 1.3 10^3/ul (0.3-0.9); NEUTROPHIL # 9.7 10^3/ul (1.6-7.5); NEUTROPHILS % 75.3 % (39.0-77.0); PLATELET COUNT 262 10^3/UL (140-415); RED BLOOD COUNT 4.31 10^6/ul (4.70-6.10); RED CELL DISTRIBUTION WIDTH 12.6 % (11.5-14.5); WHITE BLOOD COUNT 12.9 10^3/ul (4.8-10.8)
[2017-02-13 07:13] LABS: CALCIUM 8.8 mg/dl (8.4-10.2); CREATININE 0.66 mg/dl (0.61-1.24); POTASSIUM 3.7 mmol/L (3.5-5.1)
[2017-02-13 08:39] VITALS: BP 140/87; RESP 18
[2017-02-13] MEDS: SENNA TAB PO SCH (09:09)
[2017-02-13] MEDS ORDERED: SENN-53 PO (13:01)
[2017-02-13] MEDS ORDERED: FER325 PO (13:01)
[2017-02-13] MEDS ORDERED: HYDR-3498 PO (13:01)
--- NOTE | 2017-02-13 14:26 | PDOCDIS ---
Discharge Instructions DIAGNOSIS Discharge Diagnosis 1. Ventral hernia with evidence of incarceration. 2. Morbid obesity. bmi was noted at 42.5 kg/m. 3. Anemia. CONDITION Patient Condition: Stable HOME CARE INSTRUCTIONS: Diet Instructions: Low Fat /Cholesterol ACTIVITY: Activity Restrictions: Slowly Increase Activity Rest between Activity Avoid heavy lifting Do not Drive Do not operate Machinery Do not operate Power Tool Avoid Heavy Housework Bathing Restrictions: Tub Bath FOLLOW UP/APPOINTMENTS Follow-up Plan 1. Follow up with Dr. Jose Reeves in one week RUBEN WINKLER Feb 13, 2017 14:26
--- NOTE | 2017-02-13 15:08 | DS ---
Date/Time of Note Date/Time of Note DATE: 02/13/17 TIME: 15:08 Discharge Summary Admission/Discharge Info Admit Date/Time Feb 10, 2017 at 17:57 Discharge Date/Time Discharge Diagnosis 1. Ventral hernia with evidence of incarceration. 2. Morbid obesity. bmi was noted at 42.5 kg/m. 3. Anemia. Patient Condition: Stable Consults 1. Dr. Jose Reeves Hospital Course This is a 21-year-old male with no reported past medical history came to [facility] due to reports of constipation as well as abdominal pain for 4 days duration. Patient did verbalize he had some food on February 07, 2017 and since then had been having some abdominal pain. He did report taking [id number] laxatives with no relief. He also had not been passing gas for the past 2 days prior to admission. He subsequently went to [facility] for further evaluation. Of note he did report having noticed a bulge in the upper abdomen was painful to touch. Patient did have abdominal CT scan of the abdomen that did show a 5 x 4 x 4 cm ventral hernia. There were no findings of bowel obstruction or incarcerated hernia or bowel perforation. Patient was seen by general surgeon. He did undergo laparoscopic ventral hernia repair with mesh. He did tolerate procedure well. Was placed on appropriate analgesics. During his course of stay he did improve. He was advanced with his diet he did tolerate well. He was otherwise optimized medically. He was morbidly obese and advised for weight reduction. He also had some iron deficiency anemia for which he was placed on iron supplement. During his course of stay he did improve. The plan of care was discussed with the patient and patient did verbalize understanding. On the day of discharge patient was in stable condition Discussed plan of care with Dr. Torres [facility] Active Scripts Ferrous Sulfate* (Ferrous Sulfate*) 325 Mg Tabec, 325 MG PO DAILY for 30 Days, TAB Prov:RUBEN WINKLER 02/13/17 Sennosides* (Senna Lax*) 8.6 Mg Tablet, 2 TAB PO DAILY, #30 TAB Prov:RUBEN WINKLER 02/13/17 Follow-up Plan 1. Follow up with Dr. Jose Reeves in one week Primary Care Provider Care Physician No Primary Time spent on discharge: > 30 minutes Pending Labs Laboratory Tests Test 02/13/17 04:35 White Blood Count 12.910^3/ul (4.8-10.8) Red Blood Count 4.3110^6/ul (4.70-6.10) Hemoglobin 12.7g/dl (14.0-18.0) Hematocrit 36.9% (42.0-52.0) Mean Corpuscular Volume 85.6fl (82.0-101.0) Mean Corpuscular Hemoglobin 29.5pg (29.0-33.0) Mean Corpuscular Hemoglobin Concent 34.4g/dl (32.0-37.0) Red Cell Distribution Width 12.6% (11.5-14.5) Platelet Count 38092^3/UL (140-415) Mean Platelet Volume 10.9fl (7.4-10.4) Neutrophils % 75.3% (39.0-77.0) Lymphocytes % 13.1% (15.0-51.0) Monocytes % 10.0% (0.0-11.0) Eosinophils % 0.7% (0.0-7.0) Basophils % 0.4% (0.0-2.0) Nucleated Red Blood Cells % 0.0/100WBC (0.0-0.0) Neutrophils # 9.710^3/ul (1.6-7.5) Lymphocytes # 1.710^3/ul (0.8-2.9) Monocytes # 1.310^3/ul (0.3-0.9) Eosinophils # 0.110^3/ul (0.0-0.5) Basophils # 0.110^3/ul (0.0-0.1) Nucleated Red Blood Cells # 0.010^3/ul (0.0-0.0) Sodium Level 137mmol/L (135-144) Potassium Level 3.7mmol/L (3.5-5.1) Chloride Level 100mmol/L (97-110) Carbon Dioxide Level 24mmol/L (21-31) Anion Gap 17 (8-16) Blood Urea Nitrogen 10mg/dl (7-20) Creatinine 0.66mg/dl (0.61-1.24) Glucose Level 79mg/dl (70-220) Calcium Level 8.8mg/dl (8.4-10.2) REGIDOR,RUBEN Feb 13, 2017 15:08
[2017-02-13 15:10] VITALS: BP 130/73; PULSE 95; RESP 20
--- NOTE | 2017-02-13 15:10 | PN ---
Date/Time of Note Date/Time of Note DATE: 02/13/17 TIME: 15:07 Assessment/Plan Lines/Catheters IV Catheter Type (from Nrs): Saline Lock Assessment/Plan Chief Complaint/Hosp Course 1. Ventral hernia with incarcerated omentum: s/p Laparoscopic ventral herniorrhaphy x2 -IS -ambulate -ice pack to abdominal wall -abd binder for suppport -may be discharged per medical team 2. Abdominal pain secondary to above -Pain control -as above 3. BMI 42 -Diet optimization and exercise encouraged 4. Constipation -Bowel regimen -Increase fluid intake 5. Leukocytosis: ?reactive, no fevers, improved -as above -[place] culture if persistent 6. Normocytic normochromic anemia: -monitor -transfuse as needed Thank you. Patient seen and examined in collaboration with Dr. Jose Reeves. Problems: Subjective 24 Hr Interval Summary Improved pain. Tolerating po. No fevers, chills, sob, congested cough, cp, palpitations, fortune, dizziness, n/v/d/dysuria. +flatus Exam/Review of Systems Vital Signs Vitals Vital Signs Date Time Temp Pulse Resp B/P Pulse Ox O2 Delivery O2 Flow Rate FiO2 02/13/17 08:39 98.6 103 18 140/87 96 02/12/17 19:45 Room Air 02/11/17 18:40 2.0 Intake and Output 02/12/17 02/12/17 02/13/17 15:00 23:00 07:00 Intake Total 870 ml 680 ml 1200 ml Output Total 1000 ml 1100 ml Balance 870 ml -320 ml 100 ml Exam Free Text/Dictation Constitutional: alert, obese, oriented, No distress Psych: nl mood/affect, No anxiety Head: atraumatic, normocephalic Eyes: EOMI, PERRL, nl conjunctiva, No icteric ENMT: mucosa pink and moist, nl external ears & nose, nl lips & teeth Neck: non-tender, supple, No jvd Respiratory: normal air movement, No congested cough, No labored breathing Cardiovascular: regular rate and rhythm, No edema Gastrointestinal: soft, tender, No rebound or guarding, incision sites with rika, dry Musculoskeletal: nl extremities to inspection, nl gait and stance, No joint tenderness Extremities: normal pulses, No calf tenderness, No cyanosis Neurological: nl mental status, nl speech, nl strength Skin: nl turgor, rash or lesions, No diaphoresis Lymph: nl lymph nodes Results Result Diagram: 02/13/17 0435 02/13/17 0435 JOSE ROLLINS NP Feb 13, 2017 15:10
== END 2017-02-13 18:15 | disposition home or self-care (01) | DRG 354 ==
LOC: FTE 14:20 → MS1 17:57
PROVIDERS: ADMIT Internal Medicine; ATTEND Internal Medicine
PROC: 0DBU4ZZ Excision of Omentum, Percutaneous Endoscopic Approach (ICD-10-PCS; 2017-02-11)
PROC: 0WUF4JZ Supplement Abdominal Wall with Synthetic Substitute, Percutaneous Endoscopic Approach (ICD-10-PCS; principal; 2017-02-11 13:00)
DX: K43.6 Other and unspecified ventral hernia with obstruction, without gangrene (principal); Z68.41 Body mass index [BMI] 40.0-44.9, adult; E66.01 Morbid (severe) obesity due to excess calories; Z71.3 Dietary counseling and surveillance; D64.9 Anemia, unspecified; K59.00 Constipation, unspecified
CPT/HCPCS: 36415; 74176; 80048; 80053; 80061; 81001; 83036; 83540; 83605; 83690; 83735; 84100; 84439; 84443; 85025; 85610; 85730; 88302; 96374; 96375; 96376; C1781; J1100; J1170; J1885; J2250; J2270; J2405; J2765; J2795; J3010; J7030